=== PATIENT | male | born 1975 | race African-American/Black ===

== ENCOUNTER 2016-09-05 13:25 | Emergency (ER) | payer MEDICAID ==
--- NOTE | 2016-09-05 14:09 | ED Physician Documentation ---
PD HPI MHE - Stated complaint Stated Complaint: SI - Chief complaint Chief Complaint: MHE - History obtained from History obtained from: Patient - History of Present Illness Primary symptom: Suicidal ideation, Depression, Anxiety Timing - onset: How many days ago (several) Contributing factors: Substance abuse - drugs (meth few days ago). No: Substance abuse - ETOH Similar symptoms before: Diagnosis (bipolar) Recently seen: Clinic (compas counseling but has not seen psychiatrist) Review of Systems Constitutional: denies: Fever, Chills Nose: denies: Rhinorrhea / runny nose, Congestion Throat: denies: Sore throat Respiratory: denies: Cough GI: denies: Vomiting, Diarrhea Neurologic: denies: Focal weakness, Numbness Psychiatric: reports: Depressed, Suicidal (superficial abrasions to wrist without specific suicidal intent), Anxiety, Insomnia PD PAST MEDICAL HISTORY - Past Medical History Past Medical History: Yes Neuro: None Psych: Depression, Anxiety, Bipolar disorder Other Past Medical History: SI, club foot - Present Medications Home Medications: Ambulatory Orders Medication Instructions Recorded Confirmed lamoTRIgine [LaMICtal] 25 mg PO DAILY #30 tablet 09/05/16 - Allergies Allergies/Adverse Reactions: Allergies Allergy/AdvReac Type Severity Reaction Status Date / Time No Known Drug Allergies Allergy Verified 09/05/16 13:28 - Social History Does the pt smoke?: Yes Smoking Status: Current every day smoker PD ED PE NORMAL - Vitals Vital signs reviewed: Yes - General General: Alert and oriented X 3, No acute distress, Well developed/nourished - Neck Neck: Supple, no meningeal sign, No adenopathy - Cardiac Cardiac: RRR, No murmur - Respiratory Respiratory: Clear bilaterally - Derm Derm: Normal color, Warm and dry, No rash - Extremities Extremities: Other (right forearm with several superficial abrasions linear and parallel.) - Neuro Neuro: Alert and oriented X 3, 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, No motor deficit, No sensory deficit, Normal speech - Psych Psych: Normal mood, Normal affect Results - Vitals Vitals: Oxygen O2 Source Room air - Labs Labs: Laboratory Tests 09/05/16 09/05/16 09/05/16 14:02 14:02 14:02 WBC 8.5 RBC 4.50 L Hgb 13.4 L Hct 39.7 L MCV 88.3 MCH 29.9 MCHC 33.8 RDW 13.9 Plt Count 196 MPV 9.4 Neut # 6.2 Lymph # 1.8 [place] # 0.4 Eos # 0.1 Baso # 0.1 Absolute Nucleated RBC 0.00 Nucleated RBCs 0.0 Sodium 140 Potassium 3.7 Chloride 102 Carbon Dioxide 32 Anion Gap 6.0 BUN 8 Creatinine 1.1 Estimated GFR (MDRD) 90 Glucose 97 Calcium 9.1 Total Bilirubin 0.8 AST 22 ALT 17 Alkaline Phosphatase 67 Total Protein 7.8 Albumin 4.1 Globulin 3.7 Albumin/Globulin Ratio 1.1 Lipase 27 TSH 1.14 Urine Color Urine Clarity Urine pH Ur Specific [place] Urine Protein Urine Glucose (UA) Urine Ketones Urine Occult Blood Urine Nitrite Urine Bilirubin Urine Urobilinogen Ur Leukocyte Esterase Ur Microscopic Review Urine Culture Comments Urine Opiates Screen Ur Oxycodone Screen Urine Methadone Screen Ur Propoxyphene Screen Ur Barbiturates Screen Ur Tricyclics Screen Ur Phencyclidine Scrn Ur Amphetamine Screen U Methamphetamines Scrn U Benzodiazepines Scrn Urine Cocaine Screen U Cannabinoids Screen Ethyl Alcohol < 5.0 09/05/16 09/05/16 14:38 14:38 WBC RBC Hgb Hct MCV MCH MCHC RDW Plt Count MPV Neut # Lymph # [place] # Eos # Baso # Absolute Nucleated RBC Nucleated RBCs Sodium Potassium Chloride Carbon Dioxide Anion Gap BUN Creatinine Estimated GFR (MDRD) Glucose Calcium Total Bilirubin AST ALT Alkaline Phosphatase Total Protein Albumin Globulin Albumin/Globulin Ratio Lipase TSH Urine Color YELLOW Urine Clarity CLEAR Urine pH 6.5 Ur Specific [place] <=1.005 Urine Protein NEGATIVE Urine Glucose (UA) NEGATIVE Urine Ketones NEGATIVE Urine Occult Blood NEGATIVE Urine Nitrite NEGATIVE Urine Bilirubin NEGATIVE Urine Urobilinogen 0.2 (NORMAL) Ur Leukocyte Esterase NEGATIVE Ur Microscopic Review NOT INDICATED Urine Culture Comments NOT INDICATED Urine Opiates Screen NEGATIVE Ur Oxycodone Screen NEGATIVE Urine Methadone Screen NEGATIVE Ur Propoxyphene Screen NEGATIVE Ur Barbiturates Screen NEGATIVE Ur Tricyclics Screen NEGATIVE Ur Phencyclidine Scrn NEGATIVE Ur Amphetamine Screen POSITIVE H U Methamphetamines Scrn POSITIVE H U Benzodiazepines Scrn NEGATIVE Urine Cocaine Screen NEGATIVE U Cannabinoids Screen POSITIVE H Ethyl Alcohol PD MEDICAL DECISION MAKING - ED course Complexity details: considered differential, d/w patient (he is okay with starting new medication.), d/w wig sales consultant (OVIDIO who talked with pt and arranged follow up at [facility]; he denies current suicidality.) Departure - Departure Disposition: 01 Home, Self Care Clinical Impression: Drug abuse Bipolar disorder Qualifiers: Active/Remission status: currently active Current bipolar episode type: depressed Current episode severity: moderate Qualified Code(s): F31.32 - Bipolar disorder, current episode depressed, moderate Depression Qualifiers: Depression Type: dysthymia Qualified Code(s): F34.1 - Dysthymic disorder Forearm abrasion Qualifiers: Encounter type: initial encounter Laterality: right Qualified Code(s): S50.811A - Abrasion of right forearm, initial encounter Condition: Stable Record reviewed to determine appropriate education?: Yes Instructions: ED Manic Depression Follow-Up: [facility] [Provider Group] [facility] [Provider Group] Prescriptions: lamoTRIgine [LaMICtal] 25 mg PO DAILY #30 tablet Comments: Drink lots of fluids. Follow up with [facility] next week as scheduled. Take Lamictal 25 mg nightly for 5-6 days then increase to 50 mg nightly. Return if worsening symptoms. Cleanse the wrist abrasions daily and apply ointment. Recheck if signs of infection. Discharge Date/Time: 09/05/16 17:22
[2016-09-05 14:29] LABS: ALBUMIN/GLOBULIN RATIO 1.1 (1.0-2.2); BILIRUBIN,TOTAL 0.8 mg/dL (0.2-1.0); BUN - BLOOD UREA NITROGEN 8 mg/dL (6-20); CALCIUM 9.1 mg/dL (8.5-10.3); CARBON DIOXIDE - CO2 32 mmol/L (21-32); CHLORIDE 102 mmol/L (101-111); CREATININE 1.1 mg/dL (0.6-1.2); GFR - MDRD 90 (>89); GLUCOSE 97 mg/dL (70-100); LIPASE 27 U/L (22-51); POTASSIUM 3.7 mmol/L (3.5-5.0); SODIUM 140 mmol/L (135-145); TOTAL PROTEIN 7.8 g/dL (6.7-8.2)
[2016-09-05 14:45] LABS: BILIRUBIN,URINE NEGATIVE (NEGATIVE); PH,URINE 6.5 PH (5.0-7.5); UA CHARGE (STRIP ONLY) YES; UR CULTURE IF IND NOT INDICATED
[2016-09-05 15:11] LABS: BASOPHILS # (AUTO) 0.1 10^3/uL (0.0-0.1); BASOPHILS % (AUTO) 0.8 %; EOSINOPHILS # (AUTO) 0.1 10^3/uL (0.0-0.7); EOSINOPHILS % (AUTO) 0.9 %; HCT - HEMATOCRIT 39.7 % (42.0-52.0); HGB - HEMOGLOBIN 13.4 g/dL (14.0-18.0); LYMPHOCYTES # (AUTO) 1.8 10^3/uL (1.5-3.5); LYMPHOCYTES % (AUTO) 20.9 %; MEAN CORPUSCULAR HEMOGLOBIN 29.9 pg (27.0-31.0); MEAN CORPUSCULAR HGB CONC 33.8 g/dL (32.0-36.0); MEAN CORPUSCULAR VOLUME 88.3 fL (80.0-94.0); MEAN PLATELET VOLUME 9.4 fL (7.4-11.4); MONOCYTES # (AUTO) 0.4 10^3/uL (0.0-1.0); MONOCYTES % (AUTO) 4.5 %; NEUTROPHILS # (AUTO) 6.2 10^3/uL (1.5-6.6); NEUTROPHILS % (AUTO) 72.9 %; RED CELL DISTRIBUTION WIDTH 13.9 % (12.0-15.0); UNCORRECTED WHITE BLOOD COUNT 8.5 x10^3/uL; WHITE BLOOD COUNT 8.5 x10^3/uL (4.8-10.8)
[2016-09-05] MEDS ORDERED: lamoTRIgine 25 MG TABLET PO STA (15:15)
[2016-09-05 17:18] VITALS: BP 158/78
== END 2016-09-05 17:22 | disposition home or self-care (01) ==
LOC: ED 13:25
DX: F32.9 Major depressive disorder, single episode, unspecified (principal); R45.851 Suicidal ideations; F31.9 Bipolar disorder, unspecified; S50.811A Abrasion of right forearm, initial encounter; X78.9XXA Intentional self-harm by unspecified sharp object, initial encounter
CPT/HCPCS: 36415; 80053; 80306; 80320; 81003; 83690; 84443; 85025; 99283; 99284; A9270; 81001; 87086

== ENCOUNTER 2016-10-16 17:28 | Outpatient (CLI) | payer MEDICAID | END 2016-10-16 17:29 | disposition critical access hospital (66) | LOC: EMS 17:28 | PROVIDERS: ATTEND Surgery | DX: S61.512A Laceration without foreign body of left wrist, initial encounter (principal); X78.9XXA Intentional self-harm by unspecified sharp object, initial encounter; Y92.039 Unspecified place in apartment as the place of occurrence of the external cause | CPT/HCPCS: A0425; A0429 ==

== ENCOUNTER 2016-10-16 17:47 | Emergency (ER) | payer MEDICAID ==
--- NOTE | 2016-10-16 17:52 | ED Physician Documentation ---
PD HPI UPPER EXT INJURY - Stated complaint Stated Complaint: LACERATION - History obtained from History obtained from: Patient - History of Present Illness Location: Other (41-year-old gentleman, up-to-date on tetanus, he purposely self injured himself to get attention by cutting his left wrist, it was not a suicide attempt. No other injuries. He declines further medical attention. He is not suicidal.) Review of Systems Constitutional: denies: Fever, Chills Respiratory: denies: Dyspnea, Cough GI: denies: Abdominal Pain, Nausea, Vomiting PD PAST MEDICAL HISTORY - Past Medical History Neuro: None Psych: Depression, Anxiety, Bipolar disorder - Present Medications Home Medications: Ambulatory Orders Medication Instructions Recorded Confirmed lamoTRIgine [LaMICtal] 25 mg PO DAILY #30 tablet 09/05/16 - Allergies Allergies/Adverse Reactions: Allergies Allergy/AdvReac Type Severity Reaction Status Date / Time No Known Drug Allergies Allergy Verified 09/05/16 13:28 - Social History Does the pt smoke?: Yes Smoking Status: Current every day smoker PD ED PE NORMAL - Vitals Vital signs reviewed: Yes - General General: Alert and oriented X 3, No acute distress - Extremities Extremities: Other (2 very shallow scratches to the anterior left forearm without active bleeding, they do not need suturing. Good range of motion.) - Neuro Neuro: Alert and oriented X 3, Normal speech - Psych Psych: Normal mood, Normal affect Results - Vitals Vitals: Oxygen O2 Source Room air PD MEDICAL DECISION MAKING - ED course ED course: He does have self-inflicted lacerations that do not require any specific treatment other than bandages. He is not suicidal and declines further workup here. Departure - Departure Disposition: 01 Home, Self Care Clinical Impression: Forearm abrasion Qualifiers: Encounter type: initial encounter Laterality: left Qualified Code(s): S50.812A - Abrasion of left forearm, initial encounter Condition: Good Record reviewed to determine appropriate education?: Yes Instructions: First Aid Cuts and Scrapes Comments: Follow-up with [facility] at [phone] to schedule psychiatric care and counseling.
[2016-10-16 18:05] VITALS: BP 177/120
== END 2016-10-16 18:03 | disposition home or self-care (01) ==
LOC: EDUNIT# → ED 17:47
DX: S50.812A Abrasion of left forearm, initial encounter (principal); X83.8XXA Intentional self-harm by other specified means, initial encounter; Y99.8 Other external cause status
CPT/HCPCS: 99282; 99283

== ENCOUNTER 2018-04-25 15:53 | Emergency (ER) | payer MEDICAID ==
[2018-04-25] MEDS ORDERED: IBUPROFEN 800 MG TABLET PO STA (16:35)
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
[2018-04-25 17:07] VITALS: BP 150/108
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
== END 2018-04-25 17:04 | disposition home or self-care (01) ==
LOC: ED 15:53
DX: S49.91XA Unspecified injury of right shoulder and upper arm, initial encounter (principal); V19.9XXA Pedal cyclist (driver) (passenger) injured in unspecified traffic accident, initial encounter; Y93.55 Activity, bike riding; I10 Essential (primary) hypertension; F17.200 Nicotine dependence, unspecified, uncomplicated
CPT/HCPCS: 73030; 99283; A9270

== ENCOUNTER 2018-09-21 22:08 | Emergency (ER) | payer MEDICAID ==
[2018-09-21 22:15] VITALS: BP 177/108
--- NOTE | 2018-09-21 22:51 | XRAY Report ---
Reason: injury/ pain Procedure Date: 09/21/2018 Accession Number: [id number] / [id number] Procedure: XR - Finger(s) RT CPT Code: FULL RESULT: EXAM: RIGHT FOURTH DIGIT RADIOGRAPHY EXAM DATE: 09/21/2018 10:39 PM. CLINICAL HISTORY: Injury/ pain. COMPARISON: None. TECHNIQUE: 3 views. FINDINGS: Bones: Normal. No fracture or bone lesion. Joints: Normal. No subluxations. Soft Tissues: Soft tissue swelling at the PIP joint. IMPRESSION: No bony abnormality identified. RADIA
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
== END 2018-09-21 23:15 | disposition home or self-care (01) ==
LOC: ED 22:08
DX: S63.634A Sprain of interphalangeal joint of right ring finger, initial encounter (principal); V19.3XXA Pedal cyclist (driver) (passenger) injured in unspecified nontraffic accident, initial encounter; Y93.55 Activity, bike riding; Y92.410 Unspecified street and highway as the place of occurrence of the external cause; I10 Essential (primary) hypertension; F17.200 Nicotine dependence, unspecified, uncomplicated
CPT/HCPCS: 29125; 73140; 99282

== ENCOUNTER 2018-10-07 20:28 | Emergency (ER) | payer MEDICAID ==
--- NOTE | 2018-10-07 22:23 | ED Physician Documentation ---
PD HPI MHE - Stated complaint Stated Complaint: MHE - Chief complaint Chief Complaint: MHE - History obtained from History obtained from: Patient - History of Present Illness Primary symptom: Out of meds, Medical clearance. No: Suicidal ideation, Suicide attempt, Self harm - cut, Self harm - OD, Self harm - other, Homicidal ideation, Depression, Anxiety Timing - onset: Unknown Contributing factors: Other (Patient has been ordered to go to retirement by the court.) Similar symptoms before: Diagnosis (Bipolar and seizures) Recently seen: Not recently seen - Additional information Additional information: Is a 43-year-old man who presents with his significant other who reportedly was sent here from the retirement to be cleared for voluntary incarceration and he is supposed to go for commitment.Very convoluted story in that the court is ordered him to go to retirement and he was supposed to be there today but he did not go in because he has been missing his medications for the past 8 years.He reports almost daily seizures having tremors and had his last full-blown seizure about 2 days ago. He is been prescribed Keppra in the past by a doctor in [place] but it made him feel "dumb" so he never took it and has not taken it in the past 8 years. They are concerned that he might have a seizure while he is in retirement.He also has history of bipolar psychosis and they are concerned that he might have a bipolar outbreak while he is in retirement as well although he is not having psych this right now. His only other medical condition is bilateral clubfoot. Denies use of alcohol but he does smoke marijuana. He has had no other previous current illness. No vomiting, diarrhea, coughing. He is not felt suicidal or homicidal and he has not done anything to harm himself. Denies street diabetes. Review of Systems Constitutional: denies: Fever Eyes: denies: Decreased vision Nose: denies: Rhinorrhea / runny nose Cardiac: denies: Chest pain / pressure Respiratory: denies: Dyspnea GI: denies: Nausea, Vomiting : denies: Dysuria Skin: denies: Rash Neurologic: denies: Generalized weakness, Focal weakness, Numbness, Difficulty speaking, Syncope Psychiatric: denies: Depressed, Suicidal, Homicidal, Hallucinations, Delusions, Anxiety, Insomnia Endocrine: reports: Other (Not diabetic) PD PAST MEDICAL HISTORY - Past Medical History Cardiovascular: Hypertension Neuro: Seizure disorder Psych: Depression, Anxiety, Bipolar disorder - Past Surgical History Past Surgical History: No General: Appendectomy - Present Medications Home Medications: Ambulatory Orders Medication Instructions Recorded Confirmed Lisinopril 10 mg PO DAILY 09/21/18 09/21/18 Quetiapine Fumarate [Seroquel] 50 mg PO BID 09/21/18 09/21/18 - Allergies Allergies/Adverse Reactions: Allergies Allergy/AdvReac Type Severity Reaction Status Date / Time No Known Drug Allergies Allergy Verified 09/21/18 22:13 - Social History Does the pt smoke?: Yes Smoking Status: Current every day smoker Does the pt drink ETOH?: No Does the pt have substance abuse?: Yes PD ED PE NORMAL - Vitals Vital signs reviewed: Yes - General General: Alert and oriented X 3, Other (He is somnolent sitting in the chair while I am talking with his friend and falling asleep.) - HEENT HEENT: Atraumatic, PERRL - Neck Neck: Supple, no meningeal sign, No JVD - Cardiac Cardiac: RRR, No murmur - Respiratory Respiratory: No respiratory distress - Abdomen Abdomen: Normal bowel sounds - Derm Derm: Normal color, Warm and dry - Extremities Extremities: No deformity - Neuro Neuro: Alert and oriented X 3, 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 He is not in the custody of police. Does not meet criteria for admission to the psychiatric facility without acute symptoms. He will be discharged without any work-up. Encouraged to follow-up with a primary care provider if he desires treatment but he is already indicated to me that he will not take any medications for his underlying medical conditions anyway because he does not like the way they make him feel. Departure - Departure Disposition: 01 Home, Self Care Clinical Impression: Seizure Condition: Good Instructions: ED Seizure Recurrent Ch Follow-Up: [facility] [Provider Group] Comments: You should follow-up with your primary care provider for any treatment for your seizure activity.
[2018-10-07 22:35] VITALS: BP 122/87
== END 2018-10-07 22:36 | disposition home or self-care (01) ==
LOC: ED 20:28
DX: G40.909 Epilepsy, unspecified, not intractable, without status epilepticus (principal); Z91.14 Patient's other noncompliance with medication regimen; F31.9 Bipolar disorder, unspecified; Q66.89 Other specified congenital deformities of feet; I10 Essential (primary) hypertension; F17.200 Nicotine dependence, unspecified, uncomplicated
CPT/HCPCS: 99283